=== PATIENT | female | born 1985 | race Caucasian/White ===

== ENCOUNTER → 2018-05-12 | Emergency (ER) | payer OTHER, MEDICAID ==
[~2018-05-12] VITALS: Ht 152.4 cm; Wt 68.0 kg
[~2018-05-12] MED LIST: BACTRIM DS TAB1 EACH PO; CEPHALEXIN 500500 M3 PO; CIPRO250 M2 PO; PREDNISONE 10 M10 M1 PO; PREDNISONE 10 M10 MG PO
[2018-05-12 17:09] VITALS: BP 115/65
== END ==
LOC: M.ERS 16:25
DX: L27.0 Generalized skin eruption due to drugs and medicaments taken internally (principal); T37.0X5A Adverse effect of sulfonamides, initial encounter; J45.909 Unspecified asthma, uncomplicated; Z88.1 Allergy status to other antibiotic agents; Y92.89 Other specified places as the place of occurrence of the external cause